=== PATIENT | female | born 1985 | race Caucasian/White ===

== ENCOUNTER 2019-05-25 09:30 | Emergency (ER) | payer MEDICAID ==
[~2019-05-25] VITALS: Ht 167.6 cm; Wt 92.1 kg
[2019-05-25 09:33] VITALS: BP 136/76
--- NOTE | 2019-05-25 09:38 | NUR ---
PT AMBULATED TO BED 04.
--- NOTE | 2019-05-25 09:41 | NUR ---
34/F C/O REDNESS & SWELLING IN RIGHT GROIN X 3 DAYS. PAIN WORSE WITH AMBULATION. STATES FEVER LAST NIGHT 101 F. STATES BROWN/BLOODY DRAINAGE. HX- DM. PATIENT STATES PAIN OF 8/10 AT THIS TIME. PATIENT POSITIONED FOR COMFORT; HOB ELEVATED; BEDRAILS UP X1; BED DOWN. ER MD MADE AWARE OF PT STATUS.
--- NOTE | 2019-05-25 10:07 | NUR ---
Patient being evaluated by DR LAUGHLIN at bedside.
[2019-05-25] MEDS ORDERED: CLINDAMYCIN 600 MG/4 ML VIAL IM ONE (10:20)
[2019-05-25] MEDS ORDERED: DEXAMETHASONE 10 MG/ML VIAL IM ONE (10:20)
[2019-05-25 11:13] VITALS: BP 136/76
--- NOTE | 2019-05-25 11:13 | NUR ---
Patient discharged with v/s stable. Written and verbal after care instructions given and explained. Rx of MOTRIN, CLINDAMYCIN given. Patient educated on indication of medication including possible reaction and side effects. All questions addressed prior to discharge. ID band removed. Patient advised to follow up with PMD.
== END 2019-05-25 11:13 | disposition home or self-care (01) ==
LOC: MED 09:30
DX: L02.214 Cutaneous abscess of groin (principal); E11.9 Type 2 diabetes mellitus without complications
CPT/HCPCS: 96372; 99283; J1100; J3490

== ENCOUNTER 2019-08-01 06:39 | Emergency (ER) | payer MEDICAID ==
[~2019-08-01] VITALS: Ht 165.1 cm; Wt 93.0 kg
[2019-08-01 06:48] VITALS: BP 151/89
--- NOTE | 2019-08-01 06:55 | NUR ---
PT AMBULATED TO BED #8
--- NOTE | 2019-08-01 07:08 | NUR ---
PT PRESENTS TO THE WITH C/O 5/10 EPIGASTRIC ABD PAIN WITH N/V/D. PT REPORTS LAST EPISODE OF EMESIS AND DIARRHEA WAS TODAY BEFORE COMING TO THE ED. PT ON ROOM AIR. NO SOB OR S/S OF DISTRESS AT THIS TIME. BED LOWERED WITH SIDE RAILS UP.
[2019-08-01 08:30] LABS: APPEARANCE,URINE SL CLOUDY (CLEAR); BILIRUBIN,URINE NEGATIVE (NEGATIVE); BLOOD, URINE NEGATIVE (NEGATIVE); COLOR,URINE YELLOW (YELLOW); LEUKOCYTE ESTERASE ,URINE NEGATIVE (NEGATIVE); NITRITE, URINE NEGATIVE (NEGATIVE); UGLUCOSE 3+ (NEGATIVE)
[2019-08-01 08:46] LABS: RBC,URINE NONE SEEN /HPF (0-5)
--- NOTE | 2019-08-01 08:56 | NUR ---
PT DISCHARGED BY DR. DE JESUS. ALL INSTRUCTIONS PROVIDED BY DR. DE JESUS. PT LEFT AMBULATORY ACCOMPANIED BY .
== END 2019-08-01 08:56 | disposition home or self-care (01) ==
LOC: MED 06:39
DX: N39.0 Urinary tract infection, site not specified (principal); E11.9 Type 2 diabetes mellitus without complications
CPT/HCPCS: 81001; 81025; 87086; 99283

== ENCOUNTER 2022-09-16 23:49 | Emergency (ER) | payer MEDICAID ==
[~2022-09-16] VITALS: Ht 167.6 cm; Wt 86.2 kg
[2022-09-16 23:50] VITALS: BP 143/90
--- NOTE | 2022-09-17 00:01 | NUR ---
PT TRIAGED, SENT TO RESTROOM FOR URINE SAMPLE THEN TOLD TO GO BACK TO THE LOBBY.
--- NOTE | 2022-09-17 00:04 | NUR ---
PT TO 6
--- NOTE | 2022-09-17 00:05 | NUR ---
37 Y/O F presents with throbbing abdominal pain 6/10 radiating to chest xmonday. pt stated some nausea with diarrhea. pt took ibuprofen with no relief and stated she seen her primary on monday and was treated for a UTI, currently on antibiotics. pt is a&ox4, skin intact. PMH-diabetes type II NKA meds- lipitor, insulin, ozempic, steglatro, celebrex, protonix, cipro, allupurinol, lisinopril
[2022-09-17 00:10] VITALS: BP 141/79
--- NOTE | 2022-09-17 00:10 | NUR ---
Dr. Arreguin at bedside
[2022-09-17] MEDS ORDERED: DICYCLOMINE HCL LIQUID 20 MG, ALUMINUM HYD/MAG/SIMETHICONE 30 ML, LIDOCAINE VISCOUS 2% ... PO ONE ×3 (00:20)
--- NOTE | 2022-09-17 00:20 | NUR ---
lab at bedside
[2022-09-17 00:37] LABS: BASOPHILS % (AUTO) 0.5 % (0.0-2.0); EOSINOPHILS # (AUTO) 0.1 K/uL (0-0.4); HEMATOCRIT 43.9 % (36-48); HEMOGLOBIN 15.1 g/dL (12.0-16.0); LYMPHOCYTES % (AUTO) 39.7 % (20.5-51.1); MEAN CORPUSCULAR HEMOGLOBIN 30 pg (27-31); MEAN CORPUSCULAR HGB CONC 34 g/dL (33-37); MEAN CORPUSCULAR VOLUME 88.3 fL (80-94); MONOCYTES # (AUTO) 0.4 K/uL (0.8-1.0); MONOCYTES % (AUTO) 7.7 % (1.7-9.3); NEUTROPHILS # (AUTO) 2.6 K/uL (1.8-7.7); NEUTROPHILS % (AUTO) 50.1 % (42.2-75.2); PLATELET COUNT (AUTO) 175 K/uL (140-450); RED BLOOD CELL COUNT(AUTO) 4.97 MIL/uL (4.20-5.40); RED CELL DISTRIBUTION WIDTH 13.5 % (11.6-13.7); WHITE BLOOD COUNT (AUTO) 5.1 K/uL (4.8-10.8)
[2022-09-17] MEDS ORDERED: ALUMINUM HYD/MAG/SIMETHICONE 30 ML UDC ONE (00:39)
[2022-09-17] MEDS ORDERED: DICYCLOMINE HCL LIQUID 10 MG/5 ML UDC ONE (00:39)
--- NOTE | 2022-09-17 00:41 | NUR ---
Ultrasound at bedside.
[2022-09-17 00:45] LABS: APPEARANCE,URINE CLEAR (CLEAR); BILIRUBIN,URINE NEGATIVE (NEGATIVE); BLOOD, URINE 1+ (NEGATIVE); COLOR,URINE YELLOW (YELLOW); LEUKOCYTE ESTERASE ,URINE NEGATIVE (NEGATIVE); NITRITE, URINE NEGATIVE (NEGATIVE); UGLUCOSE 3+ (NEGATIVE)
[2022-09-17 00:57] LABS: ALBUMIN 4.1 g/dL (3.4-5.0); ANION GAP 12.5 (8-16); CARBON DIOXIDE 25.8 mmol/L (21-32); CREATININE 0.7 mg/dL (0.6-1.3); POTASSIUM 3.3 mmol/L (3.5-5.1); TOTAL BILIRUBIN 0.4 mg/dL (0.0-1.0)
--- NOTE | 2022-09-17 00:58 | NUR ---
x-ray at bedside
[2022-09-17 01:01] LABS: RBC,URINE 0-5 /HPF (0-5); WBC,URINE 0-5 /HPF (0-5); YEAST,URINE Few /HPF (None Seen)
--- NOTE | 2022-09-17 02:00 | NUR ---
Dr. Ugalde at bedside
[2022-09-17] MEDS ORDERED: MAG355OR2 PO (02:07)
--- NOTE | 2022-09-17 02:16 | NUR ---
Patient discharged with v/s stable. Written and verbal after care instructions given and explained. Patient alert, oriented and verbalized understanding of instructions. Ambulatory with steady gait. All questions addressed prior to discharge. ID band removed. Patient advised to follow up with PMD. Rx of mag hydrox/al hydrox/simeth given. Opportunity to ask questions provided and answered.
--- NOTE | 2022-09-17 03:38 | NUR ---
The patient's care was reviewed and supervised by Yuliet Ibarra RN.
== END 2022-09-17 02:16 | disposition home or self-care (01) ==
LOC: MED 23:49
DX: K29.70 Gastritis, unspecified, without bleeding (principal); E11.9 Type 2 diabetes mellitus without complications; Z79.899 Other long term (current) drug therapy
CPT/HCPCS: 36415; 74018; 76705; 80053; 81001; 81025; 83690; 85025; 87086; 99285; Q0092

== ENCOUNTER 2023-03-30 21:03 | Emergency (ER) | payer MEDICAID ==
[~2023-03-30] VITALS: Ht 165.1 cm; Wt 86.2 kg
[~2023-03-30 21:03] MED LIST: MAG355OR2 PO
[2023-03-30 21:55] VITALS: BP 133/88; PULSE 95; RESP 18; TEMP 97.4; O2SAT 99
[2023-03-30 22:03] VITALS: BP 133/88; PULSE 95; RESP 18; TEMP 97.4; O2SAT 99
== END 2023-03-31 02:38 | disposition home or self-care (01) ==
LOC: MED 21:03
DX: R07.0 Pain in throat (principal); F41.9 Anxiety disorder, unspecified; E11.9 Type 2 diabetes mellitus without complications; E78.5 Hyperlipidemia, unspecified; Z79.899 Other long term (current) drug therapy
CPT/HCPCS: 70490; 99284

== ENCOUNTER 2024-04-23 14:07 | Emergency (ER) | payer MEDICAID ==
[~2024-04-23] VITALS: Ht 165.1 cm; Wt 82.1 kg
[2024-04-23 14:24] VITALS: BP 139/92; PULSE 97; RESP 17; TEMP 98.5; O2SAT 99
[2024-04-23 15:15] LABS: BASOPHILS % (AUTO) 0.5 % (0.0-2.0); EOSINOPHILS # (AUTO) 0.1 K/uL (0-0.4); EOSINOPHILS % (AUTO) 1.3 % (0.0-4.0); HEMATOCRIT 46.3 % (36-48); HEMOGLOBIN 15.7 g/dL (12.0-16.0); LYMPHOCYTES # (AUTO) 2.7 K/uL (2.5-16.5); LYMPHOCYTES % (AUTO) 36.9 % (20.5-51.1); MEAN CORPUSCULAR HEMOGLOBIN 30 pg (27-31); MEAN CORPUSCULAR HGB CONC 34 g/dL (33-37); MONOCYTES # (AUTO) 0.4 K/uL (0.8-1.0); MONOCYTES % (AUTO) 5.6 % (1.7-9.3); NEUTROPHILS % (AUTO) 55.7 % (42.2-75.2); PLATELET COUNT (AUTO) 211 K/uL (140-450); WHITE BLOOD COUNT (AUTO) 7.2 K/uL (4.8-10.8)
[2024-04-23 15:21] LABS: FLU A ANTIGEN negative (NEGATIVE); FLU B ANTIGEN NEGATIVE (NEGATIVE)
[2024-04-23 15:25] LABS: ANION GAP 9.2 (8-16); CALCIUM 9.4 mg/dL (8.5-10.1); CARBON DIOXIDE 30.2 mmol/L (21-32); CREATININE 0.6 mg/dL (0.6-1.3); POTASSIUM 3.4 mmol/L (3.5-5.1)
[2024-04-23] MEDS: ACETAMINOPHEN EXTRA STRENGTH 500 MG TAB PO ONE (15:26)
[2024-04-23 15:33] LABS: PARTIAL THROMBOPLASTIN TIME 25.4 secs (22-35.6); PROTHROMBIN TIME 10.5 secs (10.8-13.4)
== END 2024-04-23 16:15 | disposition home or self-care (01) ==
LOC: MED 14:07
DX: M79.18 Myalgia, other site (principal); R07.9 Chest pain, unspecified; E11.9 Type 2 diabetes mellitus without complications; Z20.822 Contact with and (suspected) exposure to COVID-19; Z79.899 Other long term (current) drug therapy
CPT/HCPCS: 36415; 71045; 80048; 81025; 84484; 85025; 85610; 85730; 93005; 99285